=== PATIENT | female | born 1940 | race Caucasian/White ===

== ENCOUNTER → 2017-01-18 | Outpatient (CLI) | payer MEDICARE, BC | END | disposition short-term general hospital (02) | LOC: CLONCO 01:14 | DX: D89.0 Polyclonal hypergammaglobulinemia (principal); R77.9 Abnormality of plasma protein, unspecified ==

== ENCOUNTER → 2017-02-01 | Outpatient (CLI) | payer MEDICARE, BC | END | disposition short-term general hospital (02) | LOC: CLONCO 09:24 | DX: D89.0 Polyclonal hypergammaglobulinemia (principal) ==